=== PATIENT | female | born 1985 | race African-American/Black ===

== ENCOUNTER 2017-03-29 19:30 | Emergency (ER) | payer MEDICARE ==
[2017-03-29 20:13] VITALS: BP 125/87; PULSE 79; RESP 16; TEMP 96.8; O2SAT 97
== END 2017-03-29 20:44 | disposition home or self-care (01) | DRG 866 ==
LOC: ED 19:30
DX: B34.9 Viral infection, unspecified (principal); R52 Pain, unspecified; R63.0 Anorexia
CPT/HCPCS: 99282